=== PATIENT | male | born 1955 | race Caucasian/White ===

== ENCOUNTER 2016-11-30 16:42 | Emergency (ER) | payer OTHER ==
[~2016-11-30] VITALS: Ht 172.7 cm; Wt 118.0 kg
[~2016-11-30 16:42] MED LIST: LISI1TAB9 PO; OXYC1TAB24 PO
[2016-11-30 16:46] VITALS: BP 164/76; PULSE 77; RESP 19; O2SAT 97
--- NOTE | 2016-11-30 16:46 | ED.REPORT ---
HPI-Neurologic Deficit Date of Service November 30, 2016 ED Provider: The patient is a 61 year old male with history of hypertension who was brought to the emergency department by his who was concerned he may having a stroke. At 1515 today the patient was suddenly "glazed over" and not aware of what was going on. He seemed to have short term amnesia and was unable to recall some of the events from earlier in the day. The episode lasted for about 45 minutes. He was able to speak and made sense but he had no awareness of what was going on. He was acting normal prior to this event. At this time he states, "I know something is not right and I feel like crying." He also complains of a mild headache. He denies facial droop, focal weakness, numbness, slurred speech , seizure, shaking, chest pain, palpitations or shortness of breath. He has never had similar symptoms in the past. He does not smoke tobacco, drink alcohol , or use illicit drugs. Nursing Notes Stated Complaint: MEMORY PROBLEMS Chief Complaint: Neuro Symptoms/ Deficits Nursing Notes Reviewed: Yes Allergies: Coded Allergies: No Known Allergies (Unverified , 04/21/16) Scheduled Lisinopril / HCTZ 20-12.5 mg (Lisinopril / HCTZ 20-12.5 mg) 1 Each Tablet 0.5 TAB PO DAILY Scheduled PRN oxyCODONE-Acetaminophen 5-325 mg (oxyCODONE-Acetaminophen 5-325 mg) 1 Each Tablet 1-2 TAB PO Q4hs PRN PRN For Pain General Time Seen by Provider: 16:44 Chief Complaint Other (Amnesia) Hx Obtained From: Patient, Spouse Arrived By: Walk-in Sudden in Onset?: Yes Symptom Duration: 31 - 45 minutes Progression Since Onset: Gradually improving Location: : Head Quality: Painful Severity: Current: Mild Severity: Maximum: Mild Recent Healthcare: No recent doctor visit, No recent hospitalization Similar Sx Previous: No Risk Factors NIH Stroke Scale Level of Consciousness: Alert and responsive (0) Ask Month & Age: Both questions right (0) Open/Close Eyes/Hand Insulation Applicator: Performs both tasks (0) Horizontal EO Movements: None (0) Visual Fernandes: No visual loss (0) Facial Palsy: Normal symmetry (0) Right Arm Motor Drift (10s): No drift 10 sec (0) Left Arm Motor Drift (10s): No drift 10 sec (0) Right Leg Motor Drift (5s): No drift 5 sec (0) Left Leg Motor Drift (5s): No drift 5 sec (0) Limb Ataxia FNF/Heel-Landa: No ataxia (0) Sensation (Arms/Legs/Face): No sensory loss (0) Language Aphasia: No aphasia, normal (0) Dysarthria: No dysarthria, normal (0) Extinction/Inattention: No exctinct/inattent (0) NIHSS Score: 0 Time NIHSS Performed: 17:15 Date NIHSS Performed: November 30, 2016 Past Medical History Past Surgical History Thumb surgery 1999, knee 2008 Family History Noncontributory Smoking History Never Smoker Social History Alcohol Use: Denies alcohol use Drug Use: Denies drug use Other Social History: Good social support, , Local resident 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 Physical Exam Initial Vital Signs Vital Signs (First) Date Time Temp Pulse Resp B/P Pulse Ox O2 Delivery O2 Flow Rate FiO2 11/30/16 16:46 36.8 77 19 164/76 97 Room Air Initial VS: Reviewed ENT: Mucous membranes moist, Conjunctiva normal, No scleral icterus Neck: Supple, Non-tender, Full range of motion Abdomen / GI: Soft, Non-tender, No guarding, No rebound, No distention Lymphatic: No lymphadenopathy Extremities: Vascular intact, Neuro intact, No swelling, No tenderness Skin: Warm, Dry, No cyanosis Psychiatric: Mood/affect normal, Behavior normal, Normal thought content General/Constitutional: Awake, Alert Head / Eyes: Atraumatic, Normocephalic, PERRL, EOMI, No nystagmus Respiratory / Chest: Atraumatic, Breath sounds NL, Breath sounds = bilat, No respiratory distress, No rales, No rhonchi, No wheezing Cardiovascular: Heart rate NL, Regular rhythm, Heart sounds NL, No murmurs, No rubs, Peripheral circulation NL Neurologic: Oriented X3, Speech NL, No motor deficits, No sensory deficits, CN II - XII intact, Cerebellar NL, Memory NL NIH stroke scale: 0 Interpretation & Diagnostics Lab Results Interpretation Result Diagram: 11/30/16 1650 11/30/16 1650 Test 11/30/16 16:50 White Blood Count 10.1th/mm3 (3.8-10.1) Red Blood Count 4.81mil/mm3 (4.40-5.80) Hemoglobin 14.3g/dL (13.8-17.2) Hematocrit 41.8% (41.0-50.0) Mean Corpuscular Volume 86.9fL (81-100) Mean Corpuscular Hemoglobin 29.7pg (27.0-35.0) Mean Corpuscular Hemoglobin Concent 34.2% (32.0-37.0) Red Cell Distribution Width 13.4% (12.3-15.4) Platelet Count 250bil/L (150-400) Neutrophils (%) (Auto) 71.4% (40-74) Lymphocytes (%) (Auto) 20.1% (14-46) Monocytes (%) (Auto) 7.2% (4-12) Eosinophils (%) (Auto) 0.8% (0-5) Basophils (%) (Auto) 0.3% (0-3) Prothrombin Time 10.0sec (8.1-12.5) Prothromb Time International Ratio 0.94ratio Activated Partial Thromboplast Time 29.3sec (22.8-33.0) Sodium Level 139mEq/L (134-144) Potassium Level 4.2mEq/L (3.5-5.2) Chloride Level 103mEq/L (97-108) Carbon Dioxide Level 21mmol/L (18-29) Blood Urea Nitrogen 19mg/dL (8-27) Creatinine 0.69mg/dL (0.76-1.27) Estimat Glomerular Filtration Rate 124mL/min (>59) Glucose Level 100mg/dL (60-99) Calcium Level 9.9mg/dL (8.5-10.1) Total Bilirubin 0.6mg/dL (0.0-1.2) Aspartate Amino Transf (AST/SGOT) 20U/L (0-50) Alanine Aminotransferase (ALT/SGPT) 29U/L (0-44) Alkaline Phosphatase 93U/L (25-160) Troponin T < 0.010ug/L (0.0-0.011) Total Protein 7.7g/dL (6.4-8.4) Albumin 4.4g/dL (3.4-5.0) Hold Soto Top Tube Received (Received) ECG Interpretation ECG Interpretation: Normal sinus rhythm with a rate of 68 Time: 17:20 Interpreted by: ED physician X-Ray Chest Interpretation Chest Xray Interpretation: IMPRESSION: No abnormality is seen in the portable upright chest. Dictated by: Elio Orozco M.D. on 11/30/2016 at 17:16 Interpretation / Wet Read by: Interpret - Radiologist CT Head Interpretation IMPRESSION: No abnormalities found intracranially. This study fulfills neurological imaging criteria for inclusion or exclusion of acute stroke therapies based on available published neurological guidelines. Dictated by: Elio Orozco M.D. on 11/30/2016 at 17:04 findings were called to Dr. Riggins at the time of this dictation. Study: Head CT no contrast Interpretation / Wet Read by: Interpret - Radiologist Re-Eval/Medical Decision Med Decision/Clinical Course Patient was brought immediately back to her room and called as a code stroke. Acquired my immediate and full attention for evaluation. After initial bedside FAST exam was performed he was witnessed over to CT. He has an NIH stroke scale of 0. On further questioning and history obtained from him and his , there are no signs or symptoms of stroke related to his presentation today. He had a period of transient global amnesia without obvious seizure activity or stroke symptoms. He has completely returned to baseline. This does not seem to represent stroke or TIA, this may have been transient global amnesia very less likely to the seizure as no seizure activity was reported. A prolactin level was sent. It is recommended patient resume his aspirin therapy follow-up closely with his primary care. Or return to the ER if worse. Source of Hx: Old records, Family Re-Evaluation/Progress #1: Time of Eval: 17:14 Re-Evaluation/Progress Note: Rechecked the patient. Discussed head CT results with the patient and his . Re-Evaluation/Progress #2: Time of Eval: 17:59 Re-Evaluation/Progress Note: Discussed plan for discharge. All questions were addressed. Counseled Regarding: Diagnosis, Lab results, Need for follow-up, When/why to return to ED Discharge & Departure Impression: Primary Impression: Amnesia Disposition: Home Discharge Condition All VS Reviewed: Yes Condition: Stable Additional Instructions: Thank you for entrusting us with your care today. Your workup today included a head CT, chest x-ray, EKG, and labs. All of the results are reassuring. I am unsure what caused your symptoms but we have not found anything acutely dangerous. Call your regular doctor's office tomorrow to schedule an appointment in the next few days for re-evaluation. You will most likely need an outpatient MRI. Return to the emergency department if you develop numbness, weakness, speech changes, visual changes, confusion, or any other new or concerning symptoms. Referrals: Eduardo Ng MD (PCP) Scribe Attestation Portions of this note were transcribed by Jeniffer Hawthorne. I, Dr. Riggins personally performed the history, physical exam and medical decision-making; I reviewed and confirmed the accuracy of the information in the transcribed note. Signed by: Mark Olivarez, 11/30/2016 at 1800. copies to: Eduardo Ng MD, Timothy S DO November 30, 2016 16:46 Jeniffer Hawthorne November 30, 2016 16:51
[2016-11-30] MEDS ORDERED: 0.9% Sodium Chloride 1,000 ML IV ONE (16:50)
[2016-11-30 16:59] LABS: BASOPHILS % (AUTO) 0.3 % (0-3); EOSINOPHILS % (AUTO) 0.8 % (0-5); MONOCYTES % (AUTO) 7.2 % (4-12); Mean Corpuscular Hemoglobin 29.7 pg (27.0-35.0); Mean Corpuscular Volume 86.9 fL (81-100); NEUTROPHILS % (AUTO) 71.4 % (40-74); Platelet Count 250 bil/L (150-400)
--- NOTE | 2016-11-30 17:09 | DRSVH ---
PROCEDURE: CT BRAIN (TPA) ([id number]) INDICATIONS: Stroke TECHNIQUE: Noncontrast 4.5 mm thick angled axial sections acquired from the foramen magnum to the vertex, with c oronal reformats. COMPARISON: None. FINDINGS: Image quality: Excellent. CSF spaces: Basal cisterns are patent. No extra-axial fluid collections. The ventricles are symmet hodan in size and shape. Brain: No intracranial bleeds or masses. There is cerebral volume loss for age, with resultant vent ricular and sulcal prominence. There are periventricular and deep white matter chronic small vessel ischemic changes. There is intracranial internal carotid artery atherosclerosis. Skull and face: Calvarium and visualized facial bones appear intact, without suspicious lesions. Sinuses: Visualized sinuses and mastoids are clear. IMPRESSION: No abnormalities found intracranially. This study fulfills neurological imaging criteria for inclusion or exclusion of acute stroke therapie s based on available published neurological guidelines. Dictated by: Elio Orozco M.D. on 11/30/2016 at 17:04 findings were called to Dr. Riggins at the time of this dictation. Approved by: Elio Orozco M.D. on 11/30/2016 at 17:07
[2016-11-30 17:16] LABS: INR 0.94 ratio
--- NOTE | 2016-11-30 17:18 | DRSVH ---
PROCEDURE: X-RAY CHEST ONE VIEW, PORTABLE ([id number]) INDICATIONS: confusion TECHNIQUE: One view of the chest was acquired. COMPARISON: None. FINDINGS: Surgical changes and devices: equipment monitor phototypesetting leads are seen over the chest. Lungs and pleura: No pleural effusions or pneumothorax. Lungs are clear. Mediastinum: Mediastinal contours appear normal. Heart size is normal. Bones and chest wall: No suspicious bony lesions. Overlying soft tissues appear unremarkable. IMPRESSION: No abnormality is seen in the portable upright chest. Dictated by: Elio Orozco M.D. on 11/30/2016 at 17:16 Approved by: Elio Orozco M.D. on 11/30/2016 at 17:17
[2016-11-30 17:24] LABS: TROPONIN T < 0.010 ug/L (0.0-0.011)
[2016-11-30 17:59] VITALS: BP 110/57; PULSE 82; RESP 18; O2SAT 100
== END 2016-11-30 18:11 | disposition home or self-care (01) ==
LOC: SED 16:42
DX: G45.4 Transient global amnesia (principal); R51 Headache; I10 Essential (primary) hypertension
CPT/HCPCS: 36415; 70450; 71010; 80053; 84146; 84484; 85025; 85610; 85730; 93005; 96360; 99285; J7030

== ENCOUNTER 2016-12-23 11:41 | Emergency (ER) | payer OTHER ==
[~2016-12-23] VITALS: Ht 170.2 cm; Wt 111.4 kg
[2016-12-23 11:43] VITALS: BP 176/83; PULSE 71; RESP 15; O2SAT 98
--- NOTE | 2016-12-23 11:50 | ED.REPORT ---
HPI-Trauma Minor / Fall Date of Service Dec 23, 2016 ED Provider: The patient is a 61 year old male with history of prior left total knee replacement, hypertension, and hyperlipidemia, who presents to the emergency department complaining of left knee pain. The patient states he tripped on the stairs 5 days ago and hyperextended his left knee. He did not hear a pop. He did not hit his head or lose consciousness. His pain has worsened since onset. His pain is exacerbated with movement or weight bearing. He has been using an brennen wrap and crutches. He has taken 3 Percocet today with minimal relief. He denies fever, chills, nausea, vomiting, diarrhea, abdominal pain, bloody stools , chest pain, or shortness of breath. Nursing Notes Stated Complaint: L KNEE PAIN Chief Complaint: Extremity Trauma Nursing Notes Reviewed: Yes Allergies: Coded Allergies: No Known Allergies (Unverified , 12/23/16) Scheduled Lisinopril / HCTZ 20-12.5 mg (Lisinopril / HCTZ 20-12.5 mg) 1 Each Tablet 0.5 TAB PO DAILY Scheduled PRN oxyCODONE-Acetaminophen 5-325 mg (oxyCODONE-Acetaminophen 5-325 mg) 1 Each Tablet 1-2 TAB PO Q4hs PRN PRN For Pain General Time Seen by MD: 11:49 Chief Complaint Fall down stairs, Extremity pain Hx Obtained From: Patient, Spouse Arrived By: Walk-in (using crutches) Onset Occurred: 5 days ago Symptom Duration: Since onset Caused by: Fall down stairs Context: Occurred at: Home injury Location: Knee left Quality: Painful Severity: Current: Severe Severity: Maximum: Severe Recent Healthcare: No recent doctor visit, No recent hospitalization Similar Sx Previous: No Past Medical History Past Medical History Chronic knee and back pain Hypertension High cholesterol Past Surgical History Thumb surgery 1999, L knee 2008 Family History Noncontributory Smoking History Never Smoker Social History Alcohol Use: Denies alcohol use Drug Use: Denies drug use Other Social History: Good social support, , Local resident 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 Cardiovascular: Denies: Chest pain GI: Denies: Abdominal pain, Bloody/tarry stool, Diarrhea, Hematochezia, Nausea , Vomiting Physical Exam Nursing note and vitals reviewed. Vital signs grossly within normal limits, afebrile Constitutional: Well-developed, well-nourished. Not diaphoretic. Head: Normocephalic and atraumatic. Mouth/Throat: Oropharynx is clear and moist. No oropharyngeal exudate. Eyes: EOM are normal. Pupils are equal, round, and reactive to light. Neck: Supple, no tracheal deviation. Cardiovascular: Normal rate, regular rhythm. Equal and intact distal pulses throughout. Pulmonary/Chest: Effort normal and breath sounds normal. No respiratory distress. Abdominal: Soft. No distension. There is no tenderness, rebound, or guarding. Bowel sounds present. Musculoskeletal: Diffuse swelling about the left knee with no erythema. No joint laxity. RLE atraumatic. Good equal pulses in bilateral lower extremities. Neurological: AOx3. Grossly nonfocal exam. Strength and sensation intact and equal to bilateral upper and lower extremities. Skin: Warm and dry, no rashes or pallor appreciated. Psychiatric: Appropriate mood and affect. Behavior appears normal. Initial Vital Signs Vital Signs (First) Date Time Temp Pulse Resp B/P Pulse Ox O2 Delivery O2 Flow Rate FiO2 12/23/16 11:43 37.2 71 15 176/83 98 Room Air Initial VS: Reviewed Interpretation & Diagnostics X-Ray Interpretation Xray Interpretation: IMPRESSION: 1. Stable total knee arthroplasty with prosthesis in anatomic alignment. 2. No fracture or dislocation. 3. Soft tissue calcification in the suprapatellar region. Dictated by: Yeny Brizuela M.D. on 12/23/2016 at 13:01 X-Ray Ordered: Knee left Interpretation / Wet Read by: Interpret - Radiologist Re-Eval/Medical Decision Med Decision/Clinical Course 61-year-old male presenting to the ED for evaluation of left knee pain in the setting of recently slipping on the stairs. No direct trauma. Vital signs grossly within normal limits, afebrile. No erythema; neither examiner history consistent with a septic joint. No joint laxity. Neurovascular exam intact. Left knee x-ray shows stable total knee arthroplasty with prosthesis in anatomic alignment. No fracture or dislocation. Patient requested steroids as he has had these before; given Decadron. Given the above, reasonable to discharge home with outpatient orthopedic follow-up. Careful return precautions were discussed. Patient agreeable to the plan as stated, no further questions. Re-Evaluation/Progress : Time of Eval: 13:37 Re-Evaluation/Progress Note: Discussed exam findings and x-ray results, diagnosis, and plan for discharge with outpatient followup. Counseled Regarding: Diagnosis, Need for follow-up, When/why to return to ED Discharge & Departure Impression: Primary Impression: Left knee injury Encounter type: initial encounter Qualified Code: S89.92XA - Unspecified injury of left lower leg, initial encounter Disposition: Home Discharge Condition All VS Reviewed: Yes Condition: Stable Patient Instructions: Knee Pain (ED) Additional Instructions: Thank you for entrusting us with your care today. Your x-ray today is reassuring. There is no evidence of any fractures. Rest, ice, elevate, and compress your knee when you can. You should take 800 mg ibuprofen every 8 hours as needed for your pain. Use the Percocet you were previously prescribed as needed for severe pain. We have given you a referral to an client relation specialist in the area, Dr. Romano. Call his office today to schedule an appointment. You can also call your orthopedist and see who you can get into the soonest. Return to the emergency department for any new or concerning symptoms. Referrals: Eduardo Ng MD (PCP) Bruno Romano Attestation Portions of this note were transcribed by Jeniffer Hawthorne. I, Dr. Jett personally performed the history, physical exam and medical decision-making; I reviewed and confirmed the accuracy of the information in the transcribed note. Signed by: Mark Olivarez, 12/23/2016 at 1400. copies to: Eduardo Ng MD, William B MD Dec 23, 2016 11:50 Jeniffer Hawthorne Dec 23, 2016 11:53 Jeniffer Hawthorne Dec 23, 2016 11:53
--- NOTE | 2016-12-23 13:05 | DRSVH ---
PROCEDURE: X-RAY LEFT KNEE, THREE VIEWS ([id number]) INDICATIONS: knee pain eval for fratcure TECHNIQUE: 3 views of the knee were acquired. COMPARISON: None. FINDINGS: Bones: There are postsurgical changes with total knee arthroplasty with prosthesis in anatomic align ment. No fractures or dislocations. No suspicious bony lesions. Soft tissues: No joint effusion. There are calcifications in the suprapatellar soft tissue. IMPRESSION: 1. Stable total knee arthroplasty with prosthesis in anatomic alignment. 2. No fracture or dislocation. 3. Soft tissue calcification in the suprapatellar region. Dictated by: Yeny Brizuela M.D. on 12/23/2016 at 13:01 Approved by: Yeny Brizuela M.D. on 12/23/2016 at 13:03
[2016-12-23] MEDS ORDERED: oxyCODONE-Acetamin 5-325 mg Tablet PO ONE (13:10)
[2016-12-23] MEDS ORDERED: Dexamethasone 10 mg/mL Inj IM ONE (13:40)
[2016-12-23 14:48] VITALS: BP 117/70; PULSE 66; RESP 20; O2SAT 96
== END 2016-12-23 14:30 | disposition home or self-care (01) ==
LOC: SED 11:41
DX: S89.92XA Unspecified injury of left lower leg, initial encounter (principal); W10.9XXA Fall (on) (from) unspecified stairs and steps, initial encounter; Y93.89 Activity, other specified; Y92.019 Unspecified place in single-family (private) house as the place of occurrence of the external cause; Y99.0 Civilian activity done for income or pay; I10 Essential (primary) hypertension; E78.5 Hyperlipidemia, unspecified; Z96.652 Presence of left artificial knee joint
CPT/HCPCS: 73562; 96372; 99284; J1100